=== PATIENT | male | born 1940 | race Caucasian/White ===

== ENCOUNTER 2021-04-29 10:28 | Outpatient (REF) | payer MEDICARE, SELFPAY | END 2021-04-29 10:29 | disposition home or self-care (01) | LOC: HO.WFDLDS 10:28 | PROVIDERS: Visit Provider Internal Medicine | DX: Z20.822 Contact with and (suspected) exposure to COVID-19 (principal) | CPT/HCPCS: C9803; U0003; U0005 ==

== ENCOUNTER 2024-12-02 10:03 | Outpatient (AMB) | payer MEDICARE, SELFPAY ==
--- NOTE | 2024-12-02 10:13 | MHC.PC.OV ---
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 ?? Prior PCP:? Dr Marks Last office visit/CPE:?Has [place] doctor & had PE a month ago Acute issue(s):? Recent Abd US at [place] Difficulty sleeping and uses lorazepam by his ?? PMHx:? HTN, HLD, Carotid artery stenosis SurgHx:? Carotid endarterectomy SocHx: Quit 2002, EtOH with dinner. 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 1. Little interest or pleasure in doing things: not at all 2. Feeling down, depressed, or hopeless: not at all 3. Trouble falling or staying asleep, or sleeping too much: nearly every day 4. Feeling tired or having little energy: not at all 5. Poor appetite or overeating: not at all 6. Feeling bad about yourself - or that you are a failure or have let yourself or your family down: not at all 7. Trouble concentrating on things, such as reading the newspaper or watching television: not at all 8. Moving or speaking so slowly that other people could have noticed. Or the opposite - being so fidgety or restless that you have been moving around a lot more than usual: not at all 9. Thoughts that you would be better off or of hurting yourself in some way: not at all Total score: 3 Depression Screening Interpretation: Negative Depression Screening Done: Yes 25537 - PHQ-9 Billing: Yes Source: Developed by Drs. Jose Guadalupe King, Araceli Diaz, Gibran Pinon and colleagues, with an educational elayne from [employer]. Thrive Questionnaire Date Thrive assessed: 12/02/24 I am a: Patient What is your living situation today?: I have a steady place to live Within the past 12 months, did the food you bought not last and you didn't have the money to get more?: Never true Within the past 12 months, did you worry whether your food would run out before you got money to buy more?: Never true Do you have trouble paying for medicines?: No Do you have trouble getting transportation to medical appointments?: No Do you have trouble paying your heating and electricity bill?: No Do you have trouble taking care of your child, family member or friend?: No Do you have trouble with day-to-day activities such as bathing, preparing meals, shopping, managing finances, etc.?: No Are you currently unemployed and looking for a job?: No Are you interested in more education?: No Please select the resources that you would like help with: None Currently or been in a relationship where the following occur: No concerns reported THRIVE Score: 0 AUDIT C Alcohol Use Questionnaire (AUDIT-C) 1. How often do you have a drink containing alcohol?: Monthly or less 2. How many drinks containing alcohol do you have on a typical day when you are drinking?: 1 or 2 3. How often do you have six or more drinks on one occasion?: Never Total Score: 1 Score Reviewed/Action Taken: Yes ELIA-7 AMB Questionnaire ELIA-7 Date ELIA - 7 assessed: 12/02/24 Feeling nervous, anxious, or on edge: 0 = Not at all Not being able to stop or control worryin = Not at all Worrying too much about different things: 0 = Not at all Trouble relaxin = Not at all Being so restless that it is hard to sit still: 0 = Not at all Becoming easily annoyed or irritable: 0 = Not at all Feeling afraid as if something awful might happen: 0 = Not at all Total ELIA-7 score (0-4 normal; 5-9 mild; 10-14 moderate; 15-21 severe): 0 Source: Developed by Drs. Jose Guadalupe King, Araceli Diaz, Gibran Pinon and colleagues, with an educational elayne from [employer]. ELIA-7 Assessment Billing ELIA-7 Assessment Tool: ELIA-7 Assessment 95585 Review of Systems Const Denies chills, Denies fatigue, Denies fever(s), Denies headache(s) and Denies weakness ENT Denies dizziness and Denies headache(s) Card Denies chest pain, Denies lightheadedness, Denies dyspnea and Denies other (Palpitations) Resp Denies cough, Denies dyspnea, Denies wheezing and Denies other ( shortness of breath) Musc Denies numbness and Denies tingling Neuro Denies dizziness, Denies headache(s), Denies numbness, Denies tingling, Denies paresthesias and Denies weakness Psych Denies anxiety and Denies depression Endo Denies fatigue Aller/Immun Denies wheezing Physical exam (Primary Care) Vital Signs: Last Vital Signs Temp 98.1 F 12/02/24 10:27 Pulse 80 12/02/24 10:27 Resp 14 12/02/24 10:27 BP 120/60 12/02/24 10:27 Pulse Ox 94 12/02/24 10:27 Oxygen Delivery Method Room Air 12/02/24 10:27 BMI result Body Mass Index 34.3 Tobacco/Smoking Status: Tobacco use Status Tobacco use date assessed 12/02/24 12/02/24 10:28 Patient Tobacco Use Status Former Tobacco user 03/28/25 10:28 e-Cigarette/Vaping Use Never Used 12/02/24 10:28 PHQ-9: PHQ-9 Score PHQ-9: Total score 3 12/02/24 10:34 Depression Screening Interpretation: Negative Thrive Assessment: Date of Thrive Assessment Date Thrive assessed 12/02/24 12/02/24 10:28 Currently or been in a relationship where the following occur: No concerns reported Const General: no acute distress and well developed Nutritional Appearance: well nourished Orientation/consciousness: patient oriented x3 HENMT Head: Yes normocephalic and Yes atraumatic Eyes General: appearance normal, both eyes and all related structures Pupils: Equal, round and reactive pupils present EOM: EOMs intact bilaterally Resp Effort & Inspection: normal respiratory effort Auscultation: clear to auscultation bilaterally Cardio Rate: regular rate Rhythm: regular rhythm Heart sounds: S1 normal heart sound present, S2 normal heart sound present, no gallops, Murmur heart sound present (3/6 systolic murmur over aortic and mitral region) and no rubs Neuro General: patient oriented x3 and gait normal Cranial nerves: Yes Equal, round and reactive pupils present Psych Affect: normal affect Coding Level of Care Code New Pt Level 3 (02794) Diagnoses High blood pressure I10 High cholesterol E78.00 Difficulty sleeping G47.9 Carotid artery stenosis I65.29 Murmur, cardiac R01.1 Laboratory exam ordered as part of routine general medical examination Z00.00 Additional Codes ELIA-7 Assessment Billing - ELIA-7 Assessment Tool: ELIA-7 Assessment 67817 ([id number]) PHQ-9 - 22229 - PHQ-9 Billing: Yes ([id number]) Assessment & Plan Assessment & Plan (1) High blood pressure: Code(s): I10 - Essential (primary) hypertension Category: Medical Plan: Blood?pressure?is?controlled.??Goal?is?less?than?140/90 Waiting?prior?records Continue?current?medications (2) High cholesterol: Code(s): E78.00 - Pure hypercholesterolemia, unspecified Category: Medical Plan: Patient?is?on?atorvastatin Will?review?his?recent?labs?with?him?at?next?visit (3) Difficulty sleeping: Code(s): G47.9 - Sleep disorder, unspecified Category: Medical Plan: Patient?notes?some?difficulty?sleeping.??He?says?he?sometimes?use?lorazepam?given?to?him?by?his?[facility]phys[facility]. He?also?notes?some?gasping?in?his?sleep?and?snoring.??He?says?his?[facility]?physician?had?recommended?a?sleep?study?previously. We?discussed?potential?for?sleep?apnea?and?I?recommend?he?discuss?again?with?the?[facility]?regarding?getting?a?sleep?study. (4) Carotid artery stenosis: Code(s): I65.29 - Occlusion and stenosis of unspecified carotid artery Category: Medical Plan: History?of?carotid?artery?stenosis?and?now s/p carotid?endarterectomy Stable Continue?statin?and?aspirin (5) Murmur, cardiac: Code(s): R01.1 - Cardiac murmur, unspecified Category: Medical Plan: Patient?has?a?3/6?systolic?murmur?over?aortic?and?mitral?regions. Awaiting?records (6) Laboratory exam ordered as part of routine general medical examination: Code(s): Z00.00 - Encounter for general adult medical examination without abnormal findings Category: Medical Plan: Will?review?patient's?recently?acquired?labs?from?the?[facility]?patient?visit
[2024-12-02 10:27] VITALS: BP 120/60; PULSE 80; RESP 14; TEMP 36.7; O2SAT 94; BMI 34.3
== END 2024-12-02 11:01 | disposition home or self-care (01) ==
LOC: HO.HMCFM 10:03
PROVIDERS: PCP Family Medicine; Visit Provider Family Medicine
DX: I10 Essential (primary) hypertension (principal); E78.00 Pure hypercholesterolemia, unspecified; G47.9 Sleep disorder, unspecified; I65.29 Occlusion and stenosis of unspecified carotid artery; R01.1 Cardiac murmur, unspecified; Z00.00 Encounter for general adult medical examination without abnormal findings

== ENCOUNTER → 2024-12-02 10:03 | Outpatient (BNVA) | payer MEDICARE, SELFPAY | PROVIDERS: PCP Family Medicine; Visit Provider Family Medicine | DX: Z00.00 Encounter for general adult medical examination without abnormal findings (principal); I10 Essential (primary) hypertension; E78.00 Pure hypercholesterolemia, unspecified; G47.9 Sleep disorder, unspecified; I65.29 Occlusion and stenosis of unspecified carotid artery; R01.1 Cardiac murmur, unspecified | CPT/HCPCS: 96127; 99202 ==

== ENCOUNTER 2025-03-08 08:57 | Outpatient (REF) | payer MEDICARE, SELFPAY ==
--- OUTSIDE RECORDS SUMMARY | 2024-11-02 08:30 | XMS_ITS | Encounter Summary ---
Author Name [facility] Organization [facility] Address [address] [place] [id number] Care Team Providers Care Correction Worker Name Role Phone CELESTINO LOZADA Primary Care Provider Unavailabl e Insurance Providers: All historical and current Section Date Range: From patient's date of to the date document was created. This section includes the names of all active insurance providers for the patient. Insurance Provider Type of Coverage Plan Name Start of Policy Coverage End of Policy Coverage Group Number Member ID Insurance Provider's Telephone Number Policy Escalona's Name Patient's Relationship to Policy Escalona MEDICARE (WNR) MEDICARE (M) PART A Feb 05, 2007 PART A [id number] [place] PATIENT MEDICARE (WNR) MEDICARE (M) PART B Feb 05, 2007 PART B [id number] [place] PATIENT MEDICARE (WNR) MEDICARE (M) PART A Feb 05, 2007 PART A [id number] [place] VACA NCIS PATIENT MEDICARE (WNR) MEDICARE (M) PART B Feb 05, 2007 PART B [id number] [place] PATIENT Selected Encounter This section includes the information on record at [facility] for the Encounter. Date/Time Encounter Type Encounter Description Reason Provider Source Nov 02, 2024 12:30 PM OFFICE O/P EST MOD 30 MIN PRIMARY CARE/MEDICINE ICD-10-CM I10 Essential (primary) hypertension CELESTINO LOZADA Misa Encounter Template Text not used by ME Assessments - Encounter Diagnoses This section includes the primary and secondary diagnoses documented for the Encounter. Date/Time Primary/Secondary Diagnosis Diagnosis Name Provider Source Nov 02, 2024 01:14 PM PRIMARY Essential (primary) hypertension CELESTINO LOZADA Nov 02, 2024 01:14 PM SECONDARY Hematuria, unspecified CELESTINO LOZADA [place] Nov 02, 2024 01:14 PM SECONDARY Pure hypercholesterolemi a, unspecified CELESTINO LOZADA [facility] [facility] Plan of Treatment: Future Appointments (+ 6 months) and Future Tests (+/- 45 days) The Plan of Treatment section includes future care activities for the patient from all [facility] treatmentfacilities. This section includes future appointments and future orders which are active, pending or scheduled. Future Appointments This section includes appointments that were scheduled to occur 6 months from the date of the Encounter, up to a maximum of 20 appointments. The data comes from all [place] treatment facilities. Appointment Date/Time Appointment Type Appointme nt Facility Name Nov 25, 2024 12:30 PM [facility] Apr 25, 2025 08:30 AM [facility] Apr 27, 2025 10:00 AM [facility]AT[facility] - MEDICINE [facility] Lab Results: +/- 30 days of the encounter This section includes the Chemistry and Hematology Lab Results on record with ME for the patient. Radiology Reports and Pathology Reports are provided separately, in subsequent sections. Lab Results This section contains the Chemistry/Hematology Results that were resulted 30 days before or 30 daysafter the date of the Encounter. Date/Time Source Result Type Result - Unit Interpretation Reference Range Specimen Type Comment Oct 31, 2024 08:31 AM [facility] TSH SERUM Specimen Type: SERUM No comment entered. Ordering Provider: CELESTINO LOZADA Report Released Date/Time: Mar 30, 2024 11:18 AM Reporting Lab: [address] [address] Performing Lab: [address] [address] TSH 2.52 u[IU]/mL 0.35-5.00 Oct 31, 2024 08:31 AM [place] LIPID PANEL FASTING SERUM Specimen Ty pe: SERUM No comment entered. Ordering Provider: CELESTINO LOZADA Report Released Date/Time: Mar 30, 2024 11:18 AM Reporting Lab: [facility] [address] [facility] [address] Performing Lab[facility] [address] [facility] [address] CHOLESTEROL 200 mg/dL H TRIGLYCERIDE 95 mg/dL 0-150 LDL calculated 95 mg/dL 0-129 CHOL/HDL 2.3 HDL CHOLESTEROL 86 mg/dL H 40-60 Oct 31, 2024 08:31 AM [place] LIVER FUNCTION SERUM Specimen Type: SERUM No comment entered. Ordering Provider: CELESTINO LOZADA Report Released Date/Time: Mar 30, 2024 11:18 AM Reporting Lab: [facility] [address] [facility] [address] Performing Lab: [address] [address] PROTEIN,TOTAL 7.6 g/dL 6.0-8.3 ALBUMIN 3.9 g/dL 3.5-5.0 ALKALINE PHOSPHATASE 71 U/L 40-150 AST 18 U/L 5-34 ALT 23 U/L BILIRUBIN, TOTAL 0.6 mg/dL 0.2-1.2 Oct 31, 2024 08:31 AM [place] URIC ACID SERUM Sp ecimen Type: SERUM No comment entered. Ordering Provider: CELESTINO LOZADA Report Released Date/Time: Mar 30, 2024 11:18 AM Reporting Lab: [facility] [address] [address] Performing Lab: [facility] [address] URIC ACID 7.2 mg/dL 3.5-7.2 Oct 31, 2024 08:31 AM [place] BASIC METABOLIC PANEL (fasting) SERUM Specimen Type: SERUM No comment entered. Ordering Provider: CELESTINO LOZADA Report Released Date/Time: Mar 30, 2024 11:18 AM Reporting Lab: [facility] [address] [address] Performing Lab: [facility] [address] [address] UREA NITROGEN 14 mg/dL 7-25 GLUCOSE 106 mg/dL H 65-100 SODIUM 140 mmol/L 135-145 POTASSIUM 4.7 mmol/L 3.5-5.0 CHLORIDE 106 mmol/L 100-110 CO2 22 meq/L 20-30 CALCIUM 9.6 mg/dL 8.5-10.2 CREATININE, Serum 0.84 mg/dL 0.50-1.40 eGFR(CKD-EPI 2020) 87 mL/min >60 Oct 31, 2024 08:31 AM [place] MICROALBUMIN CREATININE RATIO PANEL URINE Specimen Type: URINE No comment entered. Ordering Provider: CELESTINO LOZADA Report Released Date/Time: Mar 30, 2024 11:18 AM Reporting Lab: [facility] [address] [address] Performing Lab: [facility] [address] [address] MICROALBUMIN/CREATININE RATIO 72.2 mg/g H 0-29.9 MICROALBUMIN,QUANTITATIVE 9.5 mg/dL RR U NAVAIL CREATININE URINE 131.60 mg/dL Oct 31, 2024 08:31 AM [place] CALCIUM SERUM Sp ecimen Type: SERUM No comment entered. Ordering Provider: CELESTINO LOZADA Report Released Date/Time: Mar 30, 2024 11:18 AM Reporting Lab: [facility] [address] [address] Performing Lab: [facility] [address] [address] CALCIUM 9.6 mg/dL 8.5-10.2 Oct 31, 2024 08:31 AM [place] URINALYSIS URINE S pecimen Type: URINE Comment: If Glucose = >500 and Ketones are positive, please alert the Physician. Interpret urine protein result with caution due to under filling of tubes, resulting in the incorrect urine to additive ratio. Ordering Provider: CELESTINO LOZADA Report Released Date/Time: Mar 30, 2024 11:18 AM Reporting Lab: [facility] [address] [address] Performing Lab: [facility] [address] [address] UA COLOR Light-Yellow Yellow UA APPEARANCE Turbid Clear UA GLUCOSE Normal mg/dL Negative UA KETONES NEGATIVE mg/dL Negative UA BLOOD NEGATIVE mg/dL Negative UA PROTEIN 30 mg/dL Negative UA NITRITE NEGATIVE mg/dL Negative UA BILIRUBIN NEGATIVE mg/dL Negative UA SPECIFIC GRAVITY 1.021 1.016-1.022 UA pH 6.0 5.0-9.0 UA UROBILINOGEN Normal mg/dL <2.0 UA LEUKOCYTE TRACE Negative Oct 31, 2024 08:31 AM [place] VITAMIN B12 SERUM Specimen Type: SERUM No comment entered. Ordering Provider: CELESTINO LOZADA Report Released Date/Time: Mar 30, 2024 11:18 AM Reporting Lab: [address] [address] Performing Lab: [address] [address] VITAMIN B12 376 pg/mL 200-900 Oct 31, 2024 08:31 AM [place] VITAMIN D (25-OH) SERUM Specimen Type: SERUM No comment entered. Ordering Provider: CELESTINO LOZADA Report Released Date/Time: Mar 30, 2024 11:18 AM Reporting Lab: [address] [address] Performing Lab: [address] [address] VITAMIN D (25-OH) 39 ng/mL 20-50 Oct 31, 2024 08:31 AM [place] MAGNESIUM SERUM Sp ecimen Type: SERUM No comment entered. Ordering Provider: CELESTINO LOZADA Report Released Date/Time: Mar 30, 2024 11:18 AM Reporting Lab: [address] [address] Performing Lab: [address] [address] MAGNESIUM 2.1 mg/dL 1.6-2.6 Oct 31, 2024 08:31 AM [place] FERRITIN SERUM Sp ecimen Type: SERUM No comment entered. Ordering Provider: CELESTINO LOZADA Report Released Date/Time: Mar 30, 2024 11:18 AM Reporting Lab: [facility] [address] [address] Performing Lab: [address] [address] FERRITIN 80 ng/mL 20-300 Oct 31, 2024 08:31 AM [place] RETICULOCYTES BLOOD Specimen Type: BLOOD No comment entered. Ordering Provider: CELESTINO LOZADA Report Released Date/Time: Mar 30, 2024 11:18 AM Reporting Lab: [address] [address] Performing Lab: [address] [address] RETIC % 1.7 0.6-2.0 RETIC, ABS 0.0795 10*6/uL 0.0300-0.0900 RET-HE 33.9 pg 27.9-42.0 Oct 31, 2024 08:31 AM [place] HEMOGLOBIN A1C PANEL BLOOD Specimen T ype: BLOOD Comment: Values obtained from A1C measurements can vary. For atypical A1C assays, a reported value of 7.0 could actually be between 6.72 and 7.28 if measured by a reference method. A reported value of 9.0 could actually be between 8.73 and 9.27. Ref: http://www.ngsp.org/CAPdata.asp Ordering Provider: CELESTINO LOZADA Report Released Date/Time: Mar 30, 2024 11:18 AM Reporting Lab: [address] [address] Performing Lab: [address] [address] HEMOGLOBIN A1C 5.5 4.0-5.6 Oct 31, 2024 08:31 AM [place] MICROSCOPIC AUTOMATED, URINE URINE Sp ecimen Type: URINE Comment: If Glucose = >500 and Ketones are positive, please alert the Physician. Interpret urine protein result with caution due to under filling of tubes, resulting in the incorrect urine to additive ratio. Ordering Provider: CELESTINO LOZADA Report Released Date/Time: Mar 30, 2024 11:18 AM Reporting Lab: [address] [address] Performing Lab: [facility] [address] [facility] [address] UA WBC 21-50 /[HPF] H 0-5 UA MUCUS FEW /[LPF] Trace UA RBC 11-20 /[HPF] H 0-3 Oct 31, 2024 08:31 AM [place] CBC AND DIFF (AUTO) BLOOD Specimen Ty pe: BLOOD No comment entered. Ordering Provider: CELESTINO LOZADA Report Released Date/Time: Mar 30, 2024 11:18 AM Reporting Lab: [facility] [address] [facility] [address] Performing Lab: [facility] [address] [facility] [address] WBC 6.94 10*3/uL 4.50-11.00 RBC 4.62 10*6/uL 4.23-5.66 HGB 14.0 g/dL 12.8-17 HCT 41.0 39.2-50.4 MCV 88.7 fL 82-99 MCHC 34.1 g/dL 30.8-35.1 PLT 310 10*3/uL 140-360 RDW-CV 13.0 12.0-16.0 MONO, ABS 0.53 10*3/uL 0.30-1.10 MCH 30.3 pg 26.2-32.6 NEUT % 67.3 43.7-75.8 LYMPH % 21.0 14.0-42.3 MONO % 7.6 5.1-13.7 EOS % 1.7 0.4-6.8 BASO % 0.7 0.1-2.0 NEUT, ABS 4.66 10*3/uL 2.20-7.60 LYMPH, ABS 1.46 10*3/uL 1.00-3.20 EOS, ABS 0.12 10*3/uL 0.03-0.44 BASO, ABS 0.05 10*3/uL 0.01-0.13 IMMATURE GRAN % 1.7 H 0.0-0.7 IMMATURE GRAN, ABS 0.12 10*3/uL H 0.00-0.0 6 NRBC % 0.0 0.0-0.0 NRBC, ABS 0.00 10*3/uL 0.00-0.00 Social History: Smoking Status (Most current) and Tobacco Use (All prior to encounter date) This section includes the most current, and the historical, smoking and tobacco- related health factors from the ME facility where the Encounter took place. Current Smoking Status This section includes the most current smoking, or tobacco-related health factor, from the ME facility where the Encounter took place. Date/Time Current Smoking Status Comment Facil ity Nov 02, 2024 12:30 PM VA-TOBACCO NEVER USED CIGARETTES [facility] Tobacco Use History This section includes a history of the smoking, or tobacco-related health factors, that were collected on or before the date of the Encounter. The data comes from the ME facility where the Encounter took place. Date/Time Smoking Status/Tobacco Use Comment F acility Nov 02, 2024 12:30 PM VA-TOBACCO NEVER U SED OTHER TYPE [facility] Sep 30, 2023 11:30 AM VA-TOBACCO FORMER USER [place] Sep 30, 2023 11:30 AM VA-TOBACCO NEVER USED [place] Sep 30, 2023 11:30 AM VA-TOBACCO QUIT 15 YRS OR MORE [place] May 05, 2022 09:00 AM VA-TOBACCO NEVER USED [place] January 17, 2021 10:00 AM VA-TOBACCO FORMER USER [place] January 17, 2021 10:00 AM VA-TOBACCO QUIT 15 YRS OR MORE [place] Oct 25, 2019 03:48 PM VA-TOBACCO FORMER USER [place] Oct 25, 2019 03:48 PM VA-TOBACCO QUIT 15 YRS OR MORE [place] Dec 01, 2018 09:19 AM VA-TOBACCO FORMER USER [place] Dec 01, 2018 09:19 AM VA-TOBACCO QUIT 15 YRS OR MORE [place] Nov 02, 2017 08:55 AM QUIT TOBACCO USE > 7 YEARS AGO cigarette [place] Mar 11, 2017 10:46 AM QUIT TOBACCO USE 1 -7 YEARS AGO reports quitting back in 2002 [place] Mar 13, 2016 08:49 AM QUIT TOBACCO USE > 7 YEARS AGO [place] January 11, 2010 09:22 AM QUIT TOBACCO USE > 7 YEARS AGO 7 years ago [place] Mar 13, 2009 02:45 PM QUIT TOBACCO USE 1 -7 YEARS AGO stopped tobacco 6 years ago [place] Jan 04, 2008 01:22 PM QUIT TOBACCO USE 1 -7 YEARS AGO [place] Jul 21, 2007 10:58 AM QUIT TOBACCO USE 1 -7 YEARS AGO [place] Nov 09, 2006 10:25 AM QUIT TOBACCO USE 1 -7 YEARS AGO QUIT THREE YEARS AGO THIS JANUARY [place] Dec 02, 2005 08:55 AM QUIT TOBACCO USE 1 -7 YEARS AGO [id number] 2 yrs ago [place] Jun 03, 2005 01:11 PM QUIT TOBACCO USE IN PAST Y EAR stopped 2002 [facility] Nov 20, 2004 11:42 AM QUIT TOBACCO USE IN PAST Y EAR 10/2003. [facility] Aug 15, 2004 01:00 PM HISTORY OF SMOKING quit 09-10 [facility] Aug 15, 2004 01:00 PM QUIT TOBACCO USE IN PAST Y EAR quit 09-10 [facility] Radiology Reports: +/- 30 days of the encounter Radiology Reports For cases when an order for radiology services may have been completed prior to the date of the Encounter, the report list includes the Radiology Reports that were completed up to 30 days before dateof the Encounter. For cases when an order for radiology services may have been completed after the date of the Encounter, the report list also includes the Radiology Reports that were completed up to30 days after date of the Encounter. The data comes from all [place] treatment facilities. Date/Time Radiology Report Provider Source Nov 25, 2024 12:30 PM RENAL AND BLADDER ULTRASOUND: FRANCO VACA [id number] -[id number] M Exm Date: NOV 25, 2024@12:30 Req Phys: CELESTINO LOZADA Loc: SPR PACT 3 PA (Req'g Loc) Img Loc: ULTRASOUND Service: [facility] [place] [address] (Case [id number] COMPLETE) ULTRASOUND KIDNEYS (US Detailed) CPT:22753 Reason for Study: baseline hematuria (Case [id number] COMPLETE) ULTRASOUND URINARY BLADDER (US Detailed) CPT:61636 Clinical History: some new dysuria last US 2016 - no Mass then hematuria seems baseline Report Status: Verified Date Reported: NOV 25, 2024 Date Verified: NOV 25, 2024 [employer]ack [employer] Cashier E-Sig:/ES/ELIDA NUNO JR Report: Study: Genitourinary ultrasound. Comparison: Genitourinary ultrasound from July 07, 2016. Findings: Both kidneys are normal and symmetric in size. The right kidney has a long length of 10.0 cm. The left kidney has a long length of 11.0 cm. Both kidneys appear sonographically normal with normal cortical thickness and no evidence of hydronephrosis, shadowing stone or solid mass. The urinary bladder appears slightly trabeculated without focal wall mass or internal abnormality with a prevoiding volume of 235 cc of clear urine. Normal bilateral ureteral jets are identified. An abnormal but smaller post void residual of 120 cc is identified. Previously the post void residual measured 186 cc. The prostate is again mildly to moderately enlarged and indenting the base of the bladder with a volume of 65 cc. Previously, the prostate measured 58 cc. No free fluid is identified in the abdomen or pelvis. Impression: Normal kidneys with mild bladder trabecular changes, a smaller, but abnormal post void residual and prostatomegaly, as described above. Primary Diagnostic Code: No immediate attention required Primary Interpreting Staff: ELIDA NUNO JR, Radiologist (Snack Bar Cashier) /ELIDA ENCARNACION JR [facility] Encounter Notes: All associated encounter notes This section contains the clinical notes associated to the Encounter. Date/Time Encounter Note(s) Provider Source Feb 16, 2025 08:18 AM ACCOUNTING OF DISC LOSURES NOTE: LOCAL TITLE: STATE PRESCRIPTION DRUG MONITORING PROGRAM STANDARD TITLE: ACCOUNTING OF DISCLOSURES NOTE DATE OF NOTE: FEB 16, 2025@08:18:40 ENTRY DATE: FEB 16, 2025@08:18:40 AUTHOR: HERNAN AMEZCUA EXP COSIGNER: CELESTINO LOZADA URGENCY: STATUS: COMPLETED This PDMP query was submitted by Hernan Amezcua on behalf of Celestino Lozada. The clinical justification for this PDMP query is to review controlled substances prescribed outside of the VA, and any additional information that may become available, as an important component of standard clinical care, and in accordance with [facility] policy. Patient information was shared with the PDMP Appriss Pettig[place]. The VA prescriber, for which I am a delegate, will be alerted of these PDMP findings through co-signature of this progress note. No prescription(s) for controlled substances outside the VA were found in the last 90 days. /ulysses/ Hernan Amezcua RN Registered Nurse (RN) Signed: 02/16/2025 08:18 /ulysses/ CELESTINO LOZADA PA-C STAFF PHYSICIAN MESSENGER OFFICE Cosigned: 02/16/2025 09:53 HERNAN AMEZCUA [place] Dec 12, 2024 01:05 PM ACCOUNTING OF DISC LOSURES NOTE: LOCAL TITLE: STATE PRESCRIPTION DRUG MONITORING PROGRAM STANDARD TITLE: ACCOUNTING OF DISCLOSURES NOTE DATE OF NOTE: DEC 12, 2024@13:05:02 ENTRY DATE: DEC 12, 2024@13:05:02 AUTHOR: HERNAN AMEZCUA EXP COSIGNER: CELESTINO LOZADA URGENCY: STATUS: COMPLETED This PDMP query was submitted by Hernan Amezcua on behalf of Celestino Lozada. The clinical justification for this PDMP query is to review controlled substances prescribed outside of the VA, and any additional information that may become available, as an important component of standard clinical care, and in accordance with [facility] policy. Patient information was shared with the PDMP Appriss [place]. The VA prescriber, for which I am a delegate, will be alerted of these PDMP findings through co-signature of this progress note. No prescription(s) for controlled substances outside the VA were found in the last 90 days. /ulysses/ Hernan Amezcua RN Registered Nurse (RN) Signed: 12/12/2024 13:05 /ulysses/ CELESTINO LOZADA PA-C STAFF PHYSICIAN MESSENGER OFFICE Cosigned: 12/12/2024 13:22 HERNAN AMEZCUA Nov 02, 2024 01:11 PM PREVENTIVE MEDICIN E NURSING NOTE: LOCAL TITLE: CLINICAL REMINDERS/NURSING STANDARD TITLE: PREVENTIVE MEDICINE NURSING NOTE DATE OF NOTE: NOV 02, 2024@13:11 ENTRY DATE: NOV 02, 2024@13:11:28 AUTHOR: BRYCE SANDERS EXP COSIGNER: URGENCY: STATUS: COMPLETED Advance Directive Screen MH AD: Patient has an up-to-date Advance Directive at an outside, non-va facility and was asked to forward a copy to his/her clinician. RSV Immunization: Respiratory Syncytial Virus (RSV) Vaccine: Refused GlaxoSmithKline (RSV vaccine, adjuvanted, Arexvy). Immunization: RSV, RECOMBINANT, PROTEIN SUBUNIT RSVPREF3, ADJUVANT RECONSTITUTED, 0.5 ML, PF Refusal Reason: PATIENT DECISION Patient refuses all immunization(s) in the RSV group Date Documented: 11/02/24 13:12 /jessica SANDERS LPN LICENSED PRACTICAL NURSE Signed: 11/02/2024 13:12 BRYCE SANDERS Nov 02, 2024 12:51 PM PHYSICIAN ASSISTAN T NOTE: LOCAL TITLE: PA NOTE STANDARD TITLE: PHYSICIAN MESSENGER OFFICE NOTE DATE OF NOTE: NOV 02, 2024@12:51 ENTRY DATE: NOV 02, 2024@12:51:50 AUTHOR: CELESTINO LOZADA: URGENCY: STATUS: COMPLETED Medication Reconciliation: Outpatient: Has the patient been taking medications as documented in the EMLR? YES: The patient has been taking medications as documented in the EMLR. Essential Medication List for Review used to complete this medication reconciliation. INCLUDED IN THIS LIST: Alphabetical list of active outpatient prescriptions dispensed from this [facility] (local) and dispensed from another [facility] or [facility] facility (remote) as well as inpatient orders (local, pending and active), local clinic medications, locally documented non-VA medications, and local prescriptions that have or been discontinued in the past 90 days. - All changes in medications, including all non-VA/Herbal/OTC medications were entered into CPRS. Changes: nt - If there were any medications the patient should no longer take, they were discontinued. - The patient/caregiver was instructed to update this list, discard old lists, and take this list to the next appointment, whether with a VA or non-VA provider. Falls & Incontinence Screen: Falls Screen: During the past 12 months, did the patient report any falls? 4. No falls within the past year. Incontinence Screen: During the past 12 months, has the patient has any characteristics of incontinence (ability, voiding, leakage, etc.)? No incontinence. Alcohol Use Screen (AUDIT-C): Alcohol Screen: SCREEN FOR ALCOHOL (AUDIT-C) An alcohol screening test (AUDIT-C) was negative (score=1). 1. How often did you have a drink containing alcohol in the past year? Consider a drink to be a 12 ounce can or bottle of regular beer, 8 ounces of malt liquor, a 5 ounce glass of table wine, or a 1.5 ounce shot of liquor (like scotch, gin, or vodka). Monthly or less 2. How many drinks containing alcohol did you have on a typical day when you were drinking in the past year? One or two drinks 3. How often did you have six or more drinks on one occasion in the past year? Never Tobacco Use Screening: The patient has never smoked cigarettes. The patient has never used other types of tobacco. Depression Screening: Perform PHQ-2 A PHQ-2 screen was performed. The score was 0 which is a negative screen for depression. Over the past two weeks, how often have you been bothered by the following problems? 1. Little interest or pleasure in doing things Not at all 2. Feeling down, depressed, or hopeless Not at all Homelessness/Food Insecurity Screen: In the past 2 months, have you been living in stable housing that you own, rent, or stay in as part of a household? Yes - Living in stable housing. Are you worried or concerned that in the next 2 months you may NOT have stable housing that you own, rent, or stay in as part of a household? No - Not worried about housing near future The reports the following: Within the past 12 months, you worried whether your food would run out before you got money to buy more. Never true Within the past 12 months, the food you bought just didn't last and you didn't have money to get more. Never true Suicide Screen: C-SSRS Screening Stanton-Suicide Severity Rating Scale (C-SSRS Screener) 1. Over the past month, have you wished you were or wished you could go to sleep and not wake up? No 2. Over the past month, have you had any actual thoughts of killing yourself? No 3. Over the past month, have you been thinking about how you might do this? Response not required due to responses to other questions. 4. Over the past month, have you had these thoughts and had some intention of acting on them? Response not required due to responses to other questions. 5. Over the past month, have you started to work out or worked out the details of how to kill yourself? Response not required due to responses to other questions. 6. If yes, at any time in the past month did you intend to carry out this plan? Response not required due to responses to other questions. 7. In your lifetime, have you ever done anything, started to do anything, or prepared to do anything to end your life (for example, collected pills, obtained a gun, gave away valuables, went to the roof but didn't jump)? No 8. If YES, was this within the past 3 months? Response not required due to responses to other questions. S - routine re-eval O - coop A&Ox3 NAD W-N/H/D HEENT: normocephalic NECK: supple mobile no bruits (h/o carotid stenosis, but I hear no bruits) not tender and no adeno LUNGS: resp full reg unlabored; CTA b/l COR: RRR, no M ABD: soft, not tender no mass, megaly EXT: no LLE or calf tenderness LABS: reviewed w/ pt A/P - 1) HTN - BP 130/72; HR 78 2) Renal Function Intact - Creat 0.87 in NOV 01; eGFR 87 Lytes - Na 140 and K 4.7 - cont Diovan - cont Norvasc 3) C/V Stable - never CA h/o Carotid Endarterectomy 2018 4) Neuro Stable - never CVA/TIA 5) Hypercholesterolemia - LDL 95 in NOV 01 6) On Anti-Coag Therapy?? YES (see below) - cont ASA - cont Lipitor; LFT's WNL - diet, wt 7) Normoglycemic 8) CBC Profile: WBC's and RBC's H/H and MCV Ferritin 9) Over-Arching G-U Disorders? Bacteriuria/UTI - Yes (Slight dysuria) Hematuria - Yes - But Has Been Baseline BPH Sx - Nocturia x 5 PSA - Not Done This Time - RADS: US of Bladder (last US in 2015; No Mass then) 10) Health Maintenance - 11) Stress? - nothing untoward 12) MEDS: - Reconciled - Refilled - Annotating Any Med Changes as Indicated 13) I Spent 30 Minutes: - on history and physical exam - chart review, especially updating problem list with new relevant data - treatment planning, e.g., medication management, labs orders, imaging requests, consults as required - placing order (s) - any education germane to todays's visit (see A/P above) 14) GERD - cont PPI prn RTC MAY 01 - labs before Medication Reconciliation: Outpatient: Has the patient been taking medications as documented in the EMLR? YES: The patient has been taking medications as documented in the EMLR. Essential Medication List for Review used to complete this medication reconciliation. INCLUDED IN THIS LIST: Alphabetical list of active outpatient prescriptions dispensed from this [facility] (local) and dispensed from another [facility] or [facility] facility (remote) as well as inpatient orders (local, pending and active), local clinic medications, locally documented non-VA medications, and local prescriptions that have or been discontinued in the past 90 days. - All changes in medications, including all non-VA/Herbal/OTC medications were entered into CPRS. Changes: nt - If there were any medications the patient should no longer take, they were discontinued. - The patient/caregiver was instructed to update this list, discard old lists, and take this list to the next appointment, whether with a VA or non-VA provider. /ulysses/ CELESTINO LOZADA PA-C STAFF PHYSICIAN MESSENGER OFFICE Signed: 11/02/2024 13:17 CELESTINO LOZADA
[2025-03-08 11:09] LABS: Appearance Urine Clear; Glucose Urine UA Negative (Negative); PH 5.5 (5.0-9.0); Specific Gravity - Urine 1.015 (1.005-1.025); UMIC TRIGGER UACC YES
[2025-03-08 11:12] LABS: UACC Culture Trigger YES
[2025-03-08 11:57] LABS: MANUAL DIFF FLAG NO
[2025-03-08 12:00] LABS: Hematocrit 40.0 % (42.0-52.0); Hemoglobin 13.8 g/dl (14.0-18.0); Imm Gran Abs Auto 0.03 X10*3/uL (0.00-0.03); Imm Gran Pct Auto 0.4 % (0.0-0.4); Lymphocytes Absolute Auto 1.8 X10*3/uL (1.2-4.9); Mean Corpuscular HGB Conc 34.5 g/dl (31.0-36.0); Mean Corpuscular Hemoglobin 30.9 pg (27.0-33.0); Mean Corpuscular Volume 89.7 fL (80.0-98.0); NRBC Abs Auto 0.000 X10*3/uL (0.0-0.012); NRBC Pct Auto 0.0 /100WBC (0.0-0.2); Platelet Count 311 X10*3/uL (160-400); Red Blood Count 4.46 X10*6/uL (4.60-5.80); White Blood Count 6.8 X10*3/uL (4.8-10.8)
[2025-03-08 12:28] LABS: Alanine Aminotransferase 33 U/L (0-40); Albumin Level 4.4 g/dL (3.5-5.0); Alkaline Phosphatase 67 U/L (39-117); Anion Gap 12 (12-20); Aspartate Amino Transferase 27 U/L (5-37); Blood Urea Nitrogen 15 mg/dL (9-16); Calcium 9.4 mg/dL (8.4-10.2); Carbon Dioxide 25 mmol/L (22-29); Chloride 108 mmol/L (96-108); Cholesterol 203 mg/dL (<200); Estimated Glomerular Filt Rate > 60; HDL Cholesterol 82 mg/dL (>40); Potassium 4.0 mmol/L (3.3-5.1); Sodium 141 mmol/L (135-145); Total Protein 7.0 g/dL (6.5-8.0); Triglycerides 104 mg/dL (<150)
[2025-03-08 12:59] LABS: Microalbum/Creatinine Ratio Ur 22.9 ug/mg cr (<30)
== END 2025-03-08 08:58 | disposition home or self-care (01) ==
LOC: HO.WFDLDS 08:57
PROVIDERS: Visit Provider Family Medicine
DX: Z00.00 Encounter for general adult medical examination without abnormal findings (principal); Z12.5 Encounter for screening for malignant neoplasm of prostate; I10 Essential (primary) hypertension; R01.1 Cardiac murmur, unspecified; R31.9 Hematuria, unspecified; R35.0 Frequency of micturition; G47.9 Sleep disorder, unspecified; I65.29 Occlusion and stenosis of unspecified carotid artery
CPT/HCPCS: 36415; 80053; 80061; 81001; 82043; 82570; 84153; 84443; 85025; 87086; 96127; 99212; 99397

== ENCOUNTER 2025-03-08 10:50 | Outpatient (AMB) | payer MEDICARE, SELFPAY ==
--- NOTE | 2025-03-08 11:08 | MHC.PC.OV ---
Vital Signs 03/08/25 11:13 Height 5 ft 3 in Weight 190 lb BMI 33.7 BP 130/60 Blood Pressure Location Rt brachial Position Sitting Respiration 14 Pulse 67 Pulse Source Pulse Oximeter Temp 97.6 F Temp Source Oral Pulse Oximetry (%) 94 Oxygen Delivery Method Room Air Intake Visit Reasons: Extended exam with f/u labs and health maint. Intake Note: patient is scheduled for a extended exam [place] Required: No Allergies No Known Allergies Allergy (Verified 03/08/25 11:09) Medication List - Last Reconciled 03/08/25 by London Davies MD amlodipine 5 mg PO DAILY aspirin (Adult Low Dose Aspirin) 81 mg PO DAILY atorvastatin 20 mg PO DAILY omeprazole 20 mg PO DAILY oxybutynin chloride ER 10 mg PO DAILY valsartan 40 mg PO DAILY Tobacco use date assessed: 03/08/25 Fall risk assessment: No Falls in past year Last assessed Fall Risk: 03/08/25 Dental Screening Dental Screen Date: 03/08/25 Did you have a dental visit in the last 12 months?: No Did you have a dental problem in the last 6 months where you did not have access to dental care?: No Was dental information given to patient?: Patient has dentist HPI Extended exam with f/u labs and health maint. HPI Details 85 y/o male presents for an extended exam with f/u labs and health maintenance. No recent labs to review. Blood pressure today 130/60, 67p. He is on amlodipine 5mg, valsartan 40mg daily. Reports difficulty sleeping. He notes he gets up 3-4x a night. Reports urinary frequency, blood in urine. 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 1. Little interest or pleasure in doing things: not at all 2. Feeling down, depressed, or hopeless: not at all 3. Trouble falling or staying asleep, or sleeping too much: nearly every day 4. Feeling tired or having little energy: not at all 5. Poor appetite or overeating: not at all 6. Feeling bad about yourself - or that you are a failure or have let yourself or your family down: not at all 7. Trouble concentrating on things, such as reading the newspaper or watching television: not at all 8. Moving or speaking so slowly that other people could have noticed. Or the opposite - being so fidgety or restless that you have been moving around a lot more than usual: not at all 9. Thoughts that you would be better off or of hurting yourself in some way: not at all Total score: 3 Depression Screening Interpretation: Negative Depression Screening Done: Yes 30745 - PHQ-9 Billing: Yes Source: Developed by Drs. Jose Guadalupe King, Araceli Diaz, Gibran Pinon and colleagues, with an educational elayne from [employer]. Thrive Questionnaire Date Thrive assessed: 12/02/24 I am a: Patient What is your living situation today?: I have a steady place to live Within the past 12 months, did the food you bought not last and you didn't have the money to get more?: Never true Within the past 12 months, did you worry whether your food would run out before you got money to buy more?: Never true Do you have trouble paying for medicines?: No Do you have trouble getting transportation to medical appointments?: No Do you have trouble paying your heating and electricity bill?: No Do you have trouble taking care of your child, family member or friend?: No Do you have trouble with day-to-day activities such as bathing, preparing meals, shopping, managing finances, etc.?: No Are you currently unemployed and looking for a job?: No Are you interested in more education?: No Please select the resources that you would like help with: None Currently or been in a relationship where the following occur: No concerns reported THRIVE Score: 0 ELIA-7 AMB Questionnaire ELIA-7 Date ELIA - 7 assessed: 03/08/25 Feeling nervous, anxious, or on edge: 0 = Not at all Not being able to stop or control worryin = Not at all Worrying too much about different things: 0 = Not at all Trouble relaxin = Not at all Being so restless that it is hard to sit still: 0 = Not at all Becoming easily annoyed or irritable: 0 = Not at all Feeling afraid as if something awful might happen: 0 = Not at all Total ELIA-7 score (0-4 normal; 5-9 mild; 10-14 moderate; 15-21 severe): 0 Source: Developed by Drs. Jose Guadalupe King, Araceli Diaz, Gibran Pinon and colleagues, with an educational elayne from [employer]. ELIA-7 Assessment Billing ELIA-7 Assessment Tool: ELIA-7 Assessment 08071 Review of Systems Const Denies chills, Denies fatigue, Denies fever(s), Denies headache(s) and Denies weakness Eyes Denies change in vision ENT Denies dizziness, Denies headache(s), Denies hearing loss, Denies nasal congestion, Denies sinus pain, Denies sinus pressure and Denies sore throat Card Denies chest pain, Denies lightheadedness, Denies dyspnea and Denies other (palpitations) Resp Denies cough, Denies dyspnea and Denies wheezing GI Denies abdominal pain, Denies melena, Denies hematochezia, Denies change in bowel habits, Denies dyspepsia and Denies nausea Reports hematuria, Denies dysuria and Reports urinary frequency Musc Denies abnormal gait, Denies myalgias, Denies arthralgias, Denies numbness and Denies tingling Skin/Breast Denies rash, Denies unusual bruising and Denies wounds Neuro Denies abnormal gait, Denies dizziness, Denies headache(s), Denies memory loss, Denies numbness, Denies Sensory deficit (Neuro), Denies tingling and Denies weakness Psych Denies anxiety, Denies depression and Denies memory loss Endo Denies cold intolerance, Denies fatigue, Denies heat intolerance, Denies polydipsia and Denies polyuria Dario/Lymph Denies easy bleeding and Denies easy bruising Aller/Immun Denies wheezing Physical exam (Primary Care) Vital Signs: Last Vital Signs Temp 97.6 F 03/08/25 11:13 Pulse 67 03/08/25 11:13 Resp 14 03/08/25 11:13 BP 130/60 03/08/25 11:13 Pulse Ox 94 03/08/25 11:13 Oxygen Delivery Method Room Air 03/08/25 11:13 BMI result Body Mass Index 33.7 Tobacco/Smoking Status: Tobacco use Status Tobacco use date assessed 03/08/25 03/08/25 11:16 Patient Tobacco Use Status Former Tobacco user 03/08/25 11:16 e-Cigarette/Vaping Use Never Used 03/08/25 11:16 PHQ-9: PHQ-9 Score PHQ-9: Total score 3 03/08/25 11:51 Depression Screening Interpretation: Negative Thrive Assessment: Date of Thrive Assessment Date Thrive assessed 12/02/24 03/08/25 11:16 Currently or been in a relationship where the following occur: No concerns reported Const General: no acute distress, well developed, alert and awake Nutritional Appearance: well nourished Orientation/consciousness: patient oriented x3 HENMT Head: Yes normocephalic and Yes atraumatic Ears: hearing grossly normal bilaterally and TM's normal bilaterally General nose exam: Normal external nose present and Normal nares present Mouth: Normal oral and palatal mucosa present and moist mucous membranes Teeth and gingiva: dentition normal Throat: Yes posterior oropharynx normal Eyes General: appearance normal, both eyes and all related structures Pupils: Equal, round and reactive pupils present and Pupil accommodation reflex normal EOM: EOMs intact bilaterally Neck Neck: Yes normal visual inspection, Yes no lymphadenopathy and Yes trachea midline Thyroid: Thyroid normal Carotids: no bruits Lymphatic: no lymphadenopathy noted Chest Chest palpation & inspection: normal inspection of the chest Resp Effort & Inspection: normal respiratory effort Auscultation: clear to auscultation bilaterally Cardio Rate: regular rate Rhythm: regular rhythm Heart sounds: S1 normal heart sound present, S2 normal heart sound present, no gallops, Murmur heart sound present (4/6 systolic murmur over aortic region) and no rubs Bruits: no abdominal aortic bruits and no carotid bruits GI Palpation (GI): No Abdominal aortic bruit present, Soft to palpation, nontender, No hepatosplenomegaly present and No Rebound tenderness present Auscultation: normal bowel sounds General: Yes no CVA tenderness Back/Spine/Pelvis Back: no CVA tenderness Cervical Spine: cervical ROM normal and No Cervical spine tenderness Thoracic/Lumbar Spine: thoraco-lumbar ROM normal, No pain with thoraco-lumbar ROM, No thoracic spinal tenderness and No lumbar spinal tenderness Skin Lesions: no lesions Rashes: no rashes Trauma: no lacerations or abrasions Wounds: no wounds Nails: normal Neuro General: patient oriented x3 Cranial nerves: Yes Equal, round and reactive pupils present Cognition (Neuro): normal cognition Gait exam (Neuro): Normal gait present Motor exam (neuro): 5/5 motor strength present throughout Sensory Exam: No Sensory deficit (Neuro) Deep tendon reflexes (DTR's): Right patellar reflex intensity grade: 2+ and Left patellar reflex intensity grade: 2+ Extrem General: Yes normal to inspection and No edema Psych Appearance: grossly normal Affect: normal affect Attitude: cooperative Thought process: Normal thought process present Coding Level of Care Code Tele Est Pt Level 5 (54080) Diagnoses High blood pressure I10 Carotid artery stenosis I65.29 Murmur, cardiac R01.1 Adult general medical exam Z00.00 Difficulty sleeping G47.9 Urinary frequency R35.0 Hematuria R31.9 Additional Codes ELIA-7 Assessment Billing - ELIA-7 Assessment Tool: ELIA-7 Assessment 55928 ([id number]) PHQ-9 - 07200 - PHQ-9 Billing: Yes ([id number]) Assessment & Plan Assessment & Plan (1) High blood pressure: Code(s): I10 - Essential (primary) hypertension Category: Medical Plan: Blood?pressure?is?fairly?well?controlled.??Goal?is?less?than?130/80 Continue?current?medications (2) Carotid artery stenosis: Code(s): I65.29 - Occlusion and stenosis of unspecified carotid artery Category: Medical Plan: Patient?notes?history?of?carotid?artery?stenosis Awaiting?records Lipids?at?last?check?were?fairly?well?controlled?but?LDL?at?85?and?goal?is?less?than?70 Awaiting?lab?work?which?was?drawn?today May?need?adjustment?of?atorvastatin (3) Murmur, cardiac: Code(s): R01.1 - Cardiac murmur, unspecified Category: Medical Plan: 12/11?systolic?murmur?over?aortic?region Patient?notes?that?he?has?had?an?echocardiogram?in?the?past.??I?do?not?have?records?yet?and?will?request?these (4) Adult general medical exam: Code(s): Z00.00 - Encounter for general adult medical examination without abnormal findings Category: Medical Plan: 85-year-old?male?presents?for?an?extended?exam Stable (5) Difficulty sleeping: Code(s): G47.9 - Sleep disorder, unspecified Category: Medical Plan: Patient?notes?this?is?often?due?to?urinary?frequency See?below (6) Urinary frequency: Code(s): R35.0 - Frequency of micturition Category: Medical Plan: Patient?says?he?is?getting?up?multiple?times?at?night He?has?not?seen?urologist.??He?is?using?oxybutynin?but symptoms?are?not?improved Recommended?he?see?a?urologist. He?wants?to?discuss?this?with?his?[facility]?and?I?encouraged?this (7) Hematuria: Code(s): R31.9 - Hematuria, unspecified Category: Medical Plan: Patient?notes 2?episodes?of?painless?gross?hematuria Discussed?with?patient?that?painless?gross?hematuria?as?well?as possible?incomplete?emptying?urinary?symptoms?could?represent?prostate?problems?such?as?prostate?tumors. Could?also?be?2?separate?issues?including?bladder?polyps?or?tumors He?should?be?seen?by?Urology As?above,?patient?wants?to?discuss?this?with?his?[facility]?PC[facility].??Encouraged?him?to?do?so. I?let?him?know?that?if?he?is?still?concerned?about?and?has?not?seen?a?urologist,?he?can?know?and?I?make?the?referral. Orders: Orders Complete Blood Count Auto Diff Today Z00.00 - Encounter for general adult medical examination without abnormal findings Lipid Panel Today Z00.00 - Encounter for general adult medical examination without abnormal findings UA CC w/rflx Micro + Cult Today Z00.00 - Encounter for general adult medical examination without abnormal findings Comprehensive [place]. Panel Fast Today Z00.00 - Encounter for general adult medical examination without abnormal findings Microalbumin, Random (w Creat) Today I10 - Essential (primary) hypertension Prostate Specific Antigen Scr Today Z12.5 - Encounter for screening for malignant neoplasm of prostate TSH reflex Free T4 Today Z00.00 - Encounter for general adult medical examination without abnormal findings
[2025-03-08 11:13] VITALS: BP 130/60; PULSE 67; RESP 14; TEMP 36.4; O2SAT 94; BMI 33.7
== END 2025-03-08 12:14 | disposition home or self-care (01) ==
LOC: HO.HMCFM 10:51
PROVIDERS: PCP Family Medicine; Visit Provider Family Medicine
DX: Z00.00 Encounter for general adult medical examination without abnormal findings (principal); I10 Essential (primary) hypertension; I65.29 Occlusion and stenosis of unspecified carotid artery; R01.1 Cardiac murmur, unspecified; G47.9 Sleep disorder, unspecified; R35.0 Frequency of micturition; R31.9 Hematuria, unspecified